=== PATIENT | male | born 1980 | race Hispanic/Latino ===

== ENCOUNTER 2023-05-27 11:04 | Emergency (ER) | payer SELFPAY ==
[2023-05-27 11:22] LABS: #Basophils 0.1 thou/uL (0.0-0.2); #Eosinphils 0.1 thou/uL (0.0-0.7); #Monocytes 0.7 thou/uL (0.11-0.59); #Neutrophils 8.6 thou/uL (1.40-6.50); %Basophils 0.7 % (0.0-1.0); %Eosinophils 0.9 % (0.0-10.0); %Lymphocytes 22.8 % (21.0-51.0); %Monocytes 5.6 % (0.0-10.0); %Neutrophils 69.4 % (42.0-75.0); Hematocrit 45.3 % (42.0-52.0); Hemoglobin 15.5 g/dL (14.0-18.0); Mean Corpuscular HGB CONC 34.2 g/dL (32.0-36.0); Mean Corpuscular Hemoglobin 29.1 pg (27.0-31.0); Mean Platelet Volume 9.5 fL (7.4-10.4); Platelet Count 388 10x3/uL (130-400); RBC Distribution Width 13.2 % (11.5-14.5); Red Blood Cell (RBC) Count 5.33 mill/uL (4.70-6.10); White Blood Cell (WBC) Count 12.4 10x3/uL (4.8-10.8)
[2023-05-27] MEDS ORDERED: Ketorolac Tromethamine 30 MG/ML VIAL ONE (11:28)
[2023-05-27] MEDS ORDERED: Ondansetron PF 4 MG/2 ML Vial ONE ×2 (11:28→12:06)
[2023-05-27 11:44] LABS: ALT (SGPT) 35 U/L (8-55); AST (SGOT) 35 U/L (5-34); Albumin 4.6 g/dL (3.5-5.0); Alkaline Phosphatase 86 U/L (40-110); Anion Gap 14 mmol/L (10-20); BUN (Urea Nitrogen) 18 mg/dL (8.9-20.6); Bilirubin, Total 0.7 mg/dL (0.2-1.2); Calc. Creatinine Clearance 0 mL/min (70-130); Calcium 9.7 mg/dL (7.8-10.44); Carbon Dioxide 21 mmol/L (22-29); Chloride 107 mmol/L (98-107); Estimated GFR 74; Globulin 3.6 g/dL (2.4-3.5); Glucose 134 mg/dL (70-105); Potassium 3.2 mmol/L (3.5-5.1); Protein, Total 8.2 g/dL (6.0-8.3); Sodium 139 mmol/L (136-145)
[2023-05-27 12:10] LABS: Bacteria/HPF None Seen HPF (None Seen); Bilirubin Negative (Negative); Blood, Urine 3+ (Negative); CAUTI Indications for Culture Dysuria,urgency,freq; Clarity Clear (Clear); Glucose, Urine (Dipstick) Normal (Negative); Ketone, Urine Negative (Negative); Leukocyte Negative Leu/uL (Negative); Nitrite Negative (Negative); Protein, Urine (Dipstick) 20 mg/dL (Neg-Trace); RBC/HPF 21-50 HPF (0-3); Specific Gravity, Urine 1.028 (1.002-1.036); Squamous Epithelial 0-3 HPF (0-3); Urobilinogen Normal mg/dL (Less than 2); pH, Urine 5.5 (5.0-9.0)
[2023-05-27 12:26] LABS: Urine Culture Reflex No No
== END 2023-05-27 13:12 | disposition home or self-care (01) ==
LOC: ERS 11:04
DX: R10.32 Left lower quadrant pain (principal)
CPT/HCPCS: 74176; 80053; 81001; 83690; 85025; 96361; 96374; 96375; J1885; J2405